=== PATIENT | female | born 1955 | race Caucasian/White ===

== ENCOUNTER 2018-01-19 15:17 | Inpatient (IN) | payer OTHER ==
[~2018-01-19] VITALS: Ht 162.6 cm; Wt 71.7 kg
--- NOTE | ~2018-01-19 | EKG ---
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1955 Requested By: Ignacio Machado Order Number: [id number] MD: Aakash Reagan Measurements Intervals [place] Rate: 104 P: 75 NH: 161 QRS: 36 QRSD: 98 T: 86 QT: 366 QTc: 482 Interpretive Statements Sinus tachycardia Abnormal inferior Q waves Nonspecific T abnormalities, lateral leads No previous ECG available for comparison Electronically Signed On 01-20-2018 8:09:58 SENIOR PHYSICAL THERAPIST by Aakash Reagan [email or web address] <ELECTRONICALLY SIGNED> By: Aakash Reagan MD, [facility] 01/20/18 0809 1539 1539 Aakash Reagan MD, [facility] /EPI
--- NOTE | ~2018-01-19 | HC ---
[facility] [place] [address] [place] [address] CONSULTATION Name: ZEV MARTIN Hamida Room #: 204-P [facility]..#: [id number] Admission: 01/19/18 Attend Phys: Hugo Hilario MD Discharge: 01/21/18 Date of : 53 Report #: [id number] THIS REPORT FOR: //name// CC: FAM unknown Hugo Hilario REASON FOR CONSULTATION: Elevated creatinine. REASON FOR PRESENTATION: Shortness of breath. HISTORY OF PRESENT ILLNESS: I am not really sure how accurate is the details of the history given by the patient. She is a 62-year-old with some psychiatric problems. She is known to have hypertension; however, she has not been seen by a primary care physician. She gets her medications sporadically from different facilities. She is known to have bipolar disorder and hypertension. She had kidney failure in the past. She tells me that back in 2004, she had issues while living in [place] and she was told she has advanced kidney disease and she almost of it, the details of this are not available for me. She also tells me that she had an NC when she used to live in [place]. Apparently, the patient has been living in different states complicating her medical history. She presented complaining of left-sided chest pain. This started while at rest. It was associated with nausea. No relieving or aggravating factors. On presentation to the emergency room, she was found to have an elevated creatinine at 3.0 and I was consulted to manage accordingly. Back in 2014, it does look like that she had an elevated creatinine back then. This had been in the 1.4-2 range. PAST MEDICAL HISTORY: 1. Hypertension. 2. Bipolar disorder. 3. Coronary artery disease with stents. 4. History of kidney disease. 5. Hyperlipidemia. 6. History of methamphetamine usage. PAST SURGICAL HISTORY: Cholecystectomy, partial colectomy, and left ankle surgery. SOCIAL HISTORY: Positive for meth, cocaine. She lives with a friend. She is also smoker. REVIEW OF SYSTEMS: GENERAL: Significant for weakness. CARDIAC: As per the history of present illness. PULMONARY: Significant for cough and shortness of breath. GASTROINTESTINAL: Significant for nausea and vomiting. GENITOURINARY: Significant for frequency and urgency. Again, I am not really [facility] [address] [place] [address] CONSULTATION Name: ZEV MARTIN [place] Room #: 204-P [facility]#: [id number] Admission: 01/19/18 Attend Phys: Hugo Hilario MD Discharge: 01/21/18 Date of : 53 Report #: [id number] sure how accurate is this history. PHYSICAL EXAMINATION: GENERAL: Alert and oriented. VITAL SIGNS: Blood pressure is 167/83, was 185/91. HEAD AND NECK: No jugular venous distention. CHEST: Clear to auscultation. CARDIOVASCULAR: No rub. ABDOMEN: Soft and nontender. LOWER EXTREMITIES: No edema. LABORATORY VALUES: Reviewed. BUN is 26, creatinine is 3.0. Troponins are negative. No urine studies. ASSESSMENT, IMPRESSION, AND PLAN: 1. Chronic kidney disease. 2. Bipolar disorder. 3. Hypertension. 4. Drug abuse. 5. Noncompliance with medical treatment. 6. I will initiate chronic kidney disease workup. 7. Ultrasounds of the kidneys. 8. Urine studies. 9. Blood pressure control. 10. Cardiology following and managing her symptoms. 11. Compliance seems to be a major issue and will complicate her medical care. <ELECTRONICALLY SIGNED> By: Irma Lang MD 01/22/18 1151 1035 1408 Irma Lang MD /nt
--- NOTE | ~2018-01-19 | 2DMMODE ---
[facility] [address] [place] [address] 2 D/M-MODE ECHOCARDIOGRAM Name: ZEV MARTIN Room #: 204-P [facility] IN ..#: [id number] Admission: 01/19/18 Attend Phys: Hugo Hilario MD Discharge: Date of : 53 Date of Service: 01/20/18 0956 Report #: [id number] THIS REPORT FOR: //name// APPROVED REPORT Study performed: 01/20/2018 08:59:56 EXAM: Comprehensive 2D, Doppler, and color-flow Echocardiogram Patient Location: Bedside Room #: 204 Status: routine BSA: 1.68 HR: 68 bpm BP: 167/83 mmHg Rhythm: NSR Other Information Study Quality: Good Indications Chest pain. Hx: CAD, VT, stent, htn, hlp, drug and tob abuse. 2D Dimensions RVDd: 37.32 mm LVEF(%): 52.71 (>50%) IVSd: 10.22 (7-11mm) LVOT Diam: 19.76 (18-24mm) LVDd: 50.89 mm PWd: 9.89 (7-11mm) Ascending Ao: 38.38 (22-36mm) LVDs: 37.04 (25-40mm) Aortic Root: 33.78 mm Thomas's LVEF: 52.71 % Volumes Left Atrial Volume (Systole) Single Plane 4CH: 61.35 mL Single Plane 2CH: 78.83 mL LA ESV Index: 48.00 mL/m2 Aortic Valve AoV Peak Michael.: 1.55 m/s AO Peak Gr.: 9.63 mmHg LVOT Max P.90 mmHg LVOT Max V: 1.31 m/s ANJELICA Vmax: 2.59 cm2 Mitral Valve E/A Ratio: 0.6 MV Decel. Time: 199.60 ms [facility] [employer] [address] 2 D/M-MODE ECHOCARDIOGRAM Name: ZEV MARTIN Room #: 204-P [facility] IN ..#: [id number] Admission: 01/19/18 Attend Phys: Hugo Hilario MD Discharge: Date of : 53 Date of Service: 01/20/18 0956 Report #: [id number] MV E Max Michael.: 0.80 m/s MV A Michael.: 1.37 m/s MV PHT: 57.88 ms IVRT: 103.81 ms Pulmonary Valve PV Peak Michael.: 1.06 m/s PV Peak Gr.: 4.47 mmHg Pulmonary Vein P Vein S: 0.45 m/s P Vein D: 0.92 m/s P Vein S/D Ratio: 0.49 Tricuspid Valve TR Peak Michael.: 2.55 m/s RAP Estimate: 5.00 mmHg TR Peak Gr.: 26.05 mmHg Left Ventricle The left ventricle is normal size. There is normal LV segmental wall motion. There is normal left ventricular wall thickness. Left ventricular systolic function is normal. LVEF is 55%. Mild diastolic dysfunction is present (impaired relaxation pattern). Right Ventricle The right ventricle is normal size. The right ventricular systolic function is normal. Atria Left atrium is moderately dilated. Lipomatous hypertrophy of septum The right atrium size is normal. Aortic Valve The aortic valve is normal in structure, trileaflet. No aortic regurgitation is present. There is no aortic valvular stenosis. Mitral Valve Mild mitral annular calcification. Mild mitral regurgitation. No evidence of mitral valve stenosis. Tricuspid Valve The tricuspid valve is normal in structure. Trace to mild tricuspid regurgitation. Estimated PAP is 30-35mmHg. Pulmonic Valve The pulmonary valve is normal in structure. Trace pulmonic [facility] [address] [place] [address] 2 D/M-MODE ECHOCARDIOGRAM Name: ZEV MARTIN Room #: 204-P [facility] IN [facility]#: [id number] Admission: 01/19/18 Attend Phys: Hugo Hilario MD Discharge: Date of : 53 Date of Service: 01/20/18 0956 Report #: [id number] regurgitation. Great Vessels The aortic root is normal in size. The ascending aorta is mildly dilated. IVC is normal in size and collapses >50% with inspiration. Pericardium There is no pericardial effusion. <Conclusion> Left ventricular systolic function is normal. There is normal LV segmental wall motion. LVEF is 55%. Mild diastolic dysfunction.. Left atrium is moderately dilated. Lipomatous hypertrophy of septum The aortic valve is normal in structure, trileaflet. No aortic regurgitation or stenosis Mild mitral annular calcification. Mild mitral regurgitation. Trace to mild tricuspid regurgitation. Estimated pulmonary artery pressure of 30-35mmHg. There is no pericardial effusion. <ELECTRONICALLY SIGNED> By: Aakash Reagan MD, FACC 01/20/18955 5 5 Aakash Reagan MD, FACC /INF
[~2018-01-19 15:17] MED LIST: ABILIFY10 MG PO; ADDERALL 20 MG20 M1 PO; ADULT LOW DOSE81 MG PO; ATIVAN1 MG PO; COMBIPATCH 0.01 EACH TD; LAMICTAL XR200 MG PO; LOPRESSOR 50 MG50 M1 PO; MS CONTIN 60 MG60 M1 PO; NIFEDIPINE ER90 M1 PO; OPANA ER20 MG PO; OXYCONTIN30 MG PO; PROZAC40 MG PO; TYLENOL325 MG PO; XANAX1 MG PO
[2018-01-19 15:18] VITALS: BP 185/91
[2018-01-19 15:37] LABS: HEMATOCRIT 35.8 % (37.0-47.0); HEMOGLOBIN 11.6 gm/dL (12.0-15.0); MCH 26.9 pg (26.0-34.0); MCHC 32.4 g/dL (28.0-37.0); MCV 83.3 fL (80.0-100.0); RBC 4.3 mil/uL (4.20-5.00); RDW 16.7 % (10.5-14.5); WBC 8.4 thou/uL (4.0-11.0)
[2018-01-19 15:41] LABS: ANION GAP 10 mmol/L (7-16); BUN 28 mg/dL (7-18); CALCIUM 8.9 mg/dL (8.5-10.1); CHLORIDE 109 mmol/L (98-107); CO2 23 mmol/L (21-32); CREATININE 3.2 mg/dL (0.6-1.0); GLUCOSE 116 mg/dL (74-106); POTASSIUM 4.1 mmol/L (3.5-5.1); SODIUM 142 mmol/L (136-145)
[2018-01-19 15:50] LABS: SGOT 40 U/L (15-37); SGPT 47 U/L (30-65); TOTAL BILIRUBIN 0.3 mg/dL (<0.1-1.0); TOTAL PROTEIN 7.1 g/dL (6.4-8.2); TROPONIN-I < 0.04 ng/mL (<0.06)
[2018-01-19 17:20] LABS: PROTIME 9.5 Seconds (9.3-11.4)
[2018-01-19 18:27] VITALS: BP 169/96
[2018-01-19 20:00] VITALS: BP 188/98
[2018-01-20] VITALS: BP 174/89
[2018-01-20 03:19] LABS: HEMATOCRIT 35.1 % (37.0-47.0); HEMOGLOBIN 11.1 gm/dL (12.0-15.0); MCH 26.3 pg (26.0-34.0); MCHC 31.8 g/dL (28.0-37.0); MCV 82.9 fL (80.0-100.0); RBC 4.23 mil/uL (4.20-5.00); RDW 16.6 % (10.5-14.5); WBC 6.9 thou/uL (4.0-11.0)
[2018-01-20 03:35] LABS: ANION GAP 10 mmol/L (7-16); BUN 26 mg/dL (7-18); CALCIUM 8.3 mg/dL (8.5-10.1); CHLORIDE 111 mmol/L (98-107); CO2 23 mmol/L (21-32); GLUCOSE 133 mg/dL (74-106); POTASSIUM 3.5 mmol/L (3.5-5.1); SODIUM 144 mmol/L (136-145); TROPONIN-I < 0.04 ng/mL (<0.06)
[2018-01-20 04:00] VITALS: BP 158/86
[2018-01-20 07:43] VITALS: BP 167/83
[2018-01-20 08:59] LABS: CHOLESTEROL 136 mg/dL (<200); HDL CHOLESTEROL 82 mg/dL (>40); LDL CHOLESTEROL 48 mg/dL (<100); TC:HDL 1.7 Ratio (Not establshd); TRIGLYCERIDE 32 mg/dL (<150); VLDL 6 mg/dL (<40)
[2018-01-20 12:51] VITALS: BP 140/76
[2018-01-20 16:55] VITALS: BP 175/85
[2018-01-20 19:28] VITALS: BP 163/80
[2018-01-20 22:35] LABS: URINE BILIRUBIN NEGATIVE (Negative); URINE BLOOD NEGATIVE (Negative); URINE CLARITY CLOUDY; URINE COLOR YELLOW; URINE GLUCOSE-RANDOM* NEGATIVE (Negative); URINE KETONES NEGATIVE (Negative); URINE LEUKOCYTES 1+ (Negative); URINE NITRITE NEGATIVE (Negative); URINE PROTEIN (DIPSTICK) NEGATIVE (Negative); URINE SPECIFIC GRAVITY 1.015 (1.005-1.035); URINE UROBILINOGEN 0.2 E.U./dl (0.2-1.0)
[2018-01-20 22:51] LABS: BACTERIA >30 Many /HPF (None Seen); SQUAMOUS >10 Many /LPF (0-3); URINE WBC >25 Many /HPF (0-5)
[2018-01-20 22:52] LABS: CASTS None Seen /LPF (None Seen); CRYSTALS None Seen /LPF (None Seen); URINE RBC 0-2 Rare /HPF (0-2)
[2018-01-21 04:21] LABS: PHOSPHORUS 3.1 mg/dL (2.5-4.9); POTASSIUM 3.8 mmol/L (3.5-5.1)
[2018-01-21 04:46] VITALS: BP 178/92
[2018-01-21 07:35] VITALS: BP 183/101
[2018-01-21] MEDS ORDERED: BYSTOLIC10 MG PO (12:48)
[2018-01-21] MEDS ORDERED: PROZAC40 MG PO (12:48)
[2018-01-21] MEDS ORDERED: NIFEDIPINE ER90 M1 PO (12:48)
[2018-01-21] MEDS ORDERED: LAMICTAL XR200 MG PO (12:48)
[2018-01-21] MEDS ORDERED: LIPITOR 20 MG T20 M1 PO (12:48)
[2018-01-21] MEDS ORDERED: ABILIFY10 MG PO (12:49)
[2018-01-21 14:57] VITALS: BP 183/101
[2018-01-21 15:12] VITALS: BP 178/79
[2018-01-21 17:15] VITALS: BP 183/101
== END 2018-01-21 15:30 | disposition home or self-care (01) | DRG 683 ==
LOC: ER 15:17 → 2N 16:35 → EROBS 16:35 → 2N 16:35 → EROBS 18:35 → 2N 18:47 → ENTRNSPT 01-21 16:27
PROVIDERS: Emergency Medicine; Hospitalist; Nurse Practitioner; Nurse Practitioner Adult Health
DX: N17.0 Acute kidney failure with tubular necrosis (principal); E44.0 Moderate protein-calorie malnutrition; F31.9 Bipolar disorder, unspecified; R00.0 Tachycardia, unspecified; R09.02 Hypoxemia; I25.10 Atherosclerotic heart disease of native coronary artery without angina pectoris; E78.5 Hyperlipidemia, unspecified; F14.90 Cocaine use, unspecified, uncomplicated; F17.210 Nicotine dependence, cigarettes, uncomplicated; I12.9 Hypertensive chronic kidney disease with stage 1 through stage 4 chronic kidney disease, or unspecified chronic kidney disease; E78.00 Pure hypercholesterolemia, unspecified; I16.0 Hypertensive urgency; G89.29 Other chronic pain; M54.2 Cervicalgia; M54.9 Dorsalgia, unspecified; N18.4 Chronic kidney disease, stage 4 (severe); Z87.442 Personal history of urinary calculi; Z95.5 Presence of coronary angioplasty implant and graft; Z90.49 Acquired absence of other specified parts of digestive tract; Z91.14 Patient's other noncompliance with medication regimen; Z79.899 Other long term (current) drug therapy
CPT/HCPCS: 10081

== ENCOUNTER 2021-08-30 15:51 | Inpatient (IN) | payer OTHER ==
[2021-08-30] VITALS (7 sets, daily range): BP systolic 92–138; BP diastolic 30–86
[~2021-08-30] VITALS: Ht 160 cm; Wt 46.4 kg
--- NOTE | ~2021-08-30 | HC ---
[facility] [place] [address] [place] [address] CONSULTATION Name: ZEV MARTIN Room #: 207-P ADM IN M.R.#: [id number] Admission: 08/30/21 Attend Phys: Madhuri Rodríguez MD Discharge: Date of : 53 Report #: [id number] THIS REPORT FOR: cc: [facility] - Clinic physician unknown [facility] - Clinic physician unknown Aakash Reagan MD [facility] ~ DATE OF SERVICE: 08/31/2021 REASON FOR CONSULTATION: Heart block. HISTORY OF PRESENT ILLNESS: The patient is a 66-year-old woman who is on dialysis for end-stage renal disease. She has a history of paroxysmal atrial fibrillation with recent Watchman placement at [facility] a couple weeks ago. She presented with syncope and altered mental status. When paramedics arrived to [place], she was in complete heart block and transcutaneous pacing was implemented. On arrival to [facility], she was found to be severely hyperkalemic. Aggressive measures to correct this were undertaken including emergent dialysis. Her heart block resolved. She has had intermittent atrial fibrillation. No chest heaviness or pressure. No orthopnea or paroxysmal nocturnal dyspnea. MEDICATIONS: Her medicines include Plavix, atorvastatin 20 mg daily, Prozac 40 mg daily, Bystolic 10 mg daily, nifedipine ER 90 mg daily, Abilify 15 mg daily. PAST HISTORY AND MEDICAL RECORDS: Have been reviewed and include a history of coronary disease in [place], [place] in 2007, renal failure, history of cocaine use remotely, hypertension. SOCIAL HISTORY: She is a smoker. FAMILY HISTORY: Unremarkable for premature coronary disease. REVIEW OF SYSTEMS: All systems negative except as that noted above. PHYSICAL EXAMINATION: GENERAL: Reveals a pleasant woman, in no distress. She complains of left arm pain radiating down to her fingertips. VITAL SIGNS: Blood pressure is 90/30, heart rate is 70 and regular, respirations unlabored at 18. HEENT: There are neither xanthelasma, subcutaneous xanthomata, oral mucosal or digital cyanosis or kyphoscoliosis present. CHEST: Clear to auscultation and percussion. CARDIOVASCULAR: Regular rate and rhythm with normal S1, S2. No murmurs or rubs. ABDOMEN: Soft and nontender. EXTREMITIES: Without cyanosis, clubbing or edema. Radial pulses are 2+. [facility] [address] [place] [address] CONSULTATION Name: ZEV MARTIN Room #: [address] [place] [address] IN M.R.#: [id number] Admission: 08/30/21 Attend Phys: Madhuri Rodríguez MD Discharge: Date of : 53 Report #: [id number] NEUROLOGIC: She is alert with a nonfocal exam. LABORATORY DATA: Prior EKG, normal left ventricular systolic function with left atrial enlargement, mild mitral regurgitation. Potassium 6.8, creatinine 11.3. White count 9.6, hemoglobin 7.6, hematocrit 22, platelet count 247. IMPRESSION: 1. Complete heart block, resolved, related to hyperkalemia. 2. End-stage renal disease, on dialysis, incomplete compliance. 3. Recent Watchman placement. 4. Hypertension. 5. Dyslipidemia. 6. Prior polysubstance abuse. RECOMMENDATIONS: 1. Dual antiplatelet therapy following recent Watchman placement. 2. No indication for temporary or permanent pacing given readily reversible and identified etiology for heart block, namely hyperkalemia. I have discussed these issues with the patient in detail. Thank you for asking me to participate in her care. By: 0636 [id number] Aakash Reagan MD, FACC /nt
--- NOTE | ~2021-08-30 | EMS ---
[address] [address] EMS Patient Care Report Name: ZEV MARTIN Room #: 207-P [facility] IN M.R.#: [id number] Admission: 08/30/21 Attend Phys: Madhuri Rodríguez MD Discharge: 09/01/21 Date of : 53 Report #: [id number] THIS REPORT FOR: //name// Report Transmitted: 09/05/2021 13:35 EMS Care Summary [place], [place]/[facility] Incident [id number] @ 08/30/2021 15:12 Incident Location [address] [place] [address] Patient ZEV MARTIN Female, 66 Years 1955 Patient Address HOMELESS Patient History IV Drug Use/Abuse,Dialysis, Patient Allergies No known allergies, Patient Medications Diltiazem, Chief Complaint WEAKNESS Disposition Transported Lights/Ashley Dispatch Reason Sick Person Transported To [facility] Narrative ARRIVED TO FIND PT SITTING ON A COUCH WITH STAFF. PT REPORTS FEELING WEAK AND DIZZY FOR THE PAST 3 HOURS. PT MOVED TO COT, SECURED WITH STRAPS X2, LOADED WITHOUT INCIDENT. ALS ASSESSMENT VITALS OBTAINED. PT FOUND TO BE BRADYCARDIC. PT PACED. [address] [address] EMS Patient Care Report Name: ZEV MARTIN Room #: 207-P [facility] IN [facility].#: [id number] Admission: 08/30/21 Attend Phys: Madhuri Rodríguez MD Discharge: 09/01/21 Date of : 53 Report #: [id number] [place], PT REPORTS DISCOMFORT WITH PACING, VERSED ADMINISTERED FOR COMFORT. ARRIVED. PT TAKEN INSIDE ON COT TO ER 9. PT MOVED TO BED RAILS RAISED X2. PT LEFT ON EMS PACER UNTIL MOVED TO ER PACER. REPORT GIVEN TO NURSE, PT CARE TRANSFERRED. Initial Vitals @15:37P: 70, @15:33P: 41, @15:34P: 56,R: 20,BP: 73/34,Pain: 4/10,GCS: 15,SpO2: 95,Revised Trauma: 10, @15:31P: 56,R: 20,BP: 86/56,Pain: 0/10,GCS: 15,SpO2: 95,Revised Trauma: 11, @15:37P: 71,R: 20,Pain: 4/10,GCS: 15,SpO2: 95, Assessments @15:24MENTAL:Time Oriented,Event Oriented,Place Oriented,Person Oriented,SKIN:Cold,Pale,Diaphoresis,HEENT:Head/Face: No Abnormalities,Eyes: No Abnormalities,Neck/Airway: No Abnormalities,LUNG SOUNDS:General: No Abnormalities,Left Upper: No Abnormalities,Right Upper: No Abnormalities,Left Lower: No Abnormalities,Right Lower: No Abnormalities,ABDOMEN:General: No Abnormalities,Left Upper: No Abnormalities,Right Upper: No Abnormalities,Left Lower: No Abnormalities,Right Lower: No Abnormalities,PELVIS//GI:No Abnormalities,EXTREMITIES:Left Arm: No Abnormalities,Right Arm: No Abnormalities,Left Leg: No Abnormalities,Right Leg: No Abnormalities,PULSE:Radial: 2+ Normal,NEURO:No Abnormalities, Impression Generalized Weakness Procedures @15:37Midazolam - 2 Milligrams (mg) - Intramuscular (IM)Response: Unchanged@15:33Response: Unchanged@15:35 cc () @15:24ALS AssessmentResponse: UnchangedSucceeded Timeline 15:11,Call Received 15:11,Dispatch Notified 15:12,Dispatched 15:14,En Route 15:22,On Scene 15:24,At Patient 15:24,ALS Assessment,Response: UnchangedSucceeded, 15:31,BP: 86/56 M,PULSE: 56,RR: 20 R,SPO2: 95 Ox,ETCO2: ,BG: ,PAIN: 0,GCS: 15, 15:33,Response: Unchanged 15:33,BP: / M,PULSE: 41,RR: R,SPO2: Ox,ETCO2: ,BG: ,PAIN: ,GCS: , 15:34,Depart Scene 15:34,BP: 73/34 M,PULSE: 56,RR: 20 R,SPO2: 95 Ox,ETCO2: ,BG: ,PAIN: 4,GCS: 15, [facility] [address] [place] [address] EMS Patient Care Report Name: VERONICAZEV Room #: 207-P [facility] IN .R.#: [id number] Admission: 08/30/21 Attend Phys: Madhuri Rodríguez MD Discharge: 09/01/21 Date of : 53 Report #: [id number] 15:35, cc Site: , 15:37,Midazolam - 2 Milligrams (mg) - Intramuscular (IM),Response: Unchanged 15:37,BP: / M,PULSE: 70,RR: R,SPO2: Ox,ETCO2: ,BG: ,PAIN: ,GCS: , 15:37,BP: / M,PULSE: 71,RR: 20 R,SPO2: 95 Ox,ETCO2: ,BG: ,PAIN: 4,GCS: 15, 15:39,At Destination 16:02,Call Closed Disclaimer v1.1 Copyright 2020 [employer] This EMS Care Summary contains data elements from the applicable legal record (which may be displayed differently). It is designed to provide pertinent information for the following purposes: continuity of care, clinical quality, and state data reporting. The complete legal record is available to ED staff and administrators of the receiving hospital in [employer] Patient Tracker. All data is provided "as is."
[~2021-08-30 15:51] MED LIST changes: +BYSTOLIC10 MG PO; +LIPITOR 20 MG T20 M1 PO
[2021-08-30 16:36] LABS: ABSOLUTE NEUTROPHILS 9.7 thou/uL (1.4-8.2); BASOPHILS 0.7 % (0.0-2.0); EOSINOPHILS 2.3 % (0.0-3.0); HEMATOCRIT 23.8 % (37.0-47.0); HEMOGLOBIN 7.6 gm/dL (12.0-15.0); MCH 30.5 pg (26.0-34.0); MCHC 31.8 g/dL (28.0-37.0); MCV 95.7 fL (80.0-100.0); MONOCYTES 4.9 % (1.0-8.0); PLATELET COUNT 319 thou/uL (150-400); POLYS 74.1 % (36.0-66.0); RBC 2.49 mil/uL (4.20-5.00); RDW 16.9 % (10.5-14.5); WBC 13.2 thou/uL (4.0-11.0)
[2021-08-30 16:53] LABS: ALBUMIN 2.8 g/dL (3.4-5.0); CALCIUM 8.3 mg/dL (8.5-10.1); CREATININE 11.3 mg/dL (0.6-1.0); DIRECT BILIRUBIN 0.1 mg/dL (<0.1-0.2); TOTAL BILIRUBIN 0.4 mg/dL (0.2-1.0); TOTAL PROTEIN 6.5 g/dL (6.4-8.2)
[2021-08-30 16:55] LABS: POTASSIUM 6.8 mmol/L (3.5-5.1)
--- NOTE | 2021-08-30 19:00 | NUR ---
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 PT HAS BEEN ON HD FOR APPROX ONE YEAR. AWAKE ALERT AND COOPERATIVE WANTING PAIN MED FOR CHRONIC NECK AND BACK PAIN WILL CONT TO MONITOR
--- NOTE | 2021-08-30 23:15 | NUR ---
DIALYSIS COMPLETED 1 LITER TAKEN OFF. EXTERNAL PACER OFF PT IS NOW IN SINUS RHYTHM
[2021-08-31] VITALS (16 sets, daily range): BP systolic 96–145; BP diastolic 44–77
[2021-08-31 03:27] LABS: CALCIUM 8.9 mg/dL (8.5-10.1)
[2021-08-31 03:28] LABS: HEMATOCRIT 22.8 % (37.0-47.0); HEMOGLOBIN 7.6 gm/dL (12.0-15.0); MCH 30.7 pg (26.0-34.0); MCHC 33.4 g/dL (28.0-37.0); RBC 2.48 mil/uL (4.20-5.00); RDW 16.1 % (10.5-14.5); WBC 9.6 thou/uL (4.0-11.0)
[2021-08-31 03:36] LABS: CREATININE 3.9 mg/dL (0.6-1.0); POTASSIUM 3.4 mmol/L (3.5-5.1)
--- NOTE | 2021-08-31 06:00 | NUR ---
PT AWAKE AMD ALERT PROGRESSING TOWARD GOALS 10 CC UO THIS SHIFT. PT WANTS TO GO HOME AND SHE DOES NOT WANT TO BE TIED DOWN TO DIALYSIS EVERYDAY. SHE STATES SHE IS VERY NONCOMPLIANT, REMAINS IN SINUS RHYTHM. BATHED. ONE MOPD STOOL THIS AM. WILL CONT TO MONITOR
--- NOTE | 2021-08-31 13:40 | EKG ---
[address] [place] [address] ELECTROCARDIOGRAM REPORT Name: ZEV MARTIN Room #: 242-P ADM IN M.R.#: [id number] Admission: 08/30/21 Attend Phys: Madhuri Rodríguez MD Discharge: Date of : 53 Report #: [id number] [facility] ED Test Date: 2021-08-30 Test Time: 16:26:34 Pat Name: ZEV MARTIN Department: Room: 242 Gender: F Nurse'S Assistant: SCOTTIE : 1955 Requested By: Tesha David Order Number: [id number] MD: Aakash Reagan Measurements Intervals [place] Rate: 25 P: 0 CO: 129 QRS: 40 QRSD: 117 T: 64 QT: 577 QTc: 372 Interpretive Statements Complete heart block with severe bradycardia Baseline wander in lead(s) II,III,aVR,aVL,aVF,V1,V2,V3,V4,V5,V6 Compared to ECG 01/19/2018 15:39:43 Complete heart block is now present Electronically Signed On 08-31-2021 13:40:39 CDT by Aakash Reagan [email or web address] <ELECTRONICALLY SIGNED> By: Aakash Reagan MD, [facility] 08/31/21 1340 1626 1626 Aakash Reagan MD, [facility] /EPI
--- NOTE | 2021-08-31 13:44 | EKG ---
[place] [address] [facility] [employer] ([employer] [place] [address] ELECTROCARDIOGRAM REPORT Name: ZEV MARTIN Room #: 242- ADM IN M.R.#: [id number] Admission: 08/30/21 Attend Phys: Madhuri Rodríguez MD Discharge: Date of : 53 Report #: [id number] [facility] Test Date: 2021-08-31 Test Time: 08:40:57 Pat Name: ZEV MARTIN Department: Room: 242 Gender: F Director Of Capital Giving: AUGUSTUS : 1955 Requested By: Aakash Reagan Order Number: [id number] MD: Aakash Reagan Measurements Intervals [place] Rate: 84 P: 73 MD: 194 QRS: 41 QRSD: 99 T: 137 QT: 414 QTc: 490 Interpretive Statements Sinus rhythm LVH with secondary repolarization abnormality Borderline prolonged QT interval Compared to ECG 01/19/2018 15:39:43 Complete heart block is no longer present Electronically Signed On 08-31-2021 13:43:43 CDT by Aakash Reagan [email or web address] <ELECTRONICALLY SIGNED> By: Aakash Regaan MD, [facility] 08/31/21 1343 9 9 Aakash Reaagn MD, [facility] /EPI
--- NOTE | 2021-08-31 16:54 | NUR ---
pt denies any cardiac signs/symptoms. wants to return to [facility] and have dialysis tomorrow. rn attempted to facilitate Damian transfer unsuccessfully. report given to DIANN Sanchez. pt transferred to #207 per wheelchair.
--- NOTE | 2021-08-31 18:32 | NUR ---
PT ARRIVED TO UNIT AT 1650. PT IS MS-TELE STATUS.PT IS STABLE AT TIME OF ADMISSION. PTS VS OBTAINED, PT IS ORIENTED TO ROOM AND PROCEEDURES. PT IS OFFERED FOOD AND DRINK AND ACCEPTS. PT ATE DINNER AND IS RESTING IN BED AT THIS TIME. WILL CONTNIUE TO MONITOR.
[2021-09-01 04:46] VITALS: BP 132/63
[2021-09-01 08:02] VITALS: BP 189/97
[2021-09-01 12:12] VITALS: BP 141/84
[2021-09-01] MEDS ORDERED: HYDRALAZINE 2525 MG PO (12:17)
[2021-09-01] MEDS ORDERED: CLOPIDOGREL75 MG PO (12:17)
[2021-09-01] MEDS ORDERED: BAYER CHEWABLE81 MG PO (12:17)
--- NOTE | 2021-09-01 12:21 | NUR ---
0700 ASSUMED CARE OF PT THIS AM. PT IS AWAKE AND RESTING IN BED AT TIME OF SHIFT CHANGE. PT IS STILL IN BED AT TIME OF ASSESSMENT AND MEDICAITON ADMINISTRATION. PT IS CALM AND COMPLIANT WITH MEDICATIONS AND ASSESSMENT. PT VOICES THAT SHE IS READY TO GO HOME TO THIS NURSE. THE PT IS GETTING DYALISIS THIS AM AND THEN WILL DC HOME TO [facility] [facility] LATER THIS AFTERNOON. WILL CONTINUE TO MONITOR.
[2021-09-01 16:50] VITALS: BP 141/84
--- NOTE | 2021-09-01 17:00 | NUR ---
ALEX IS DISCHARGED HOME TO [facility]. PT IS STABLE AT TIME OF DISCHARGE. PTS IJ IS REMOVED @1500 PRIOR TO DISCHARGE. PT IS GIVEN ALL DISCHARGE AND FOLLOW UP INSTRUCITONS. PTS TELE MONITOR IS REMOVED PRIOR TO DISCHARGE. PT IS ESCORTED OFF OF UNIT ACCOMPANIED BY TRANSPORTATION STAFF.
--- NOTE | 2021-09-01 17:02 | NUR ---
1300 PT HAD 1.5 HRS OF DYALISIS AND THEN TOLD DYALISIS NURSE TO STOP DYALISIS BECUASE SHE WAS TIRED OF IT AND NO LONGER WANTED TO DO IT. PT WAS EDUCATED ON IMPORTANCE OF DYALISIS AND PT STILL WANTED TO STOP DYALISIS. DYALISIS NURSE REORTED THAT THEY TOOK OFF APROX 300CC OF FLUID. PHYSICIAN NOTIFIED.
--- NOTE | 2021-09-01 17:04 | NUR ---
1500 PS IS REFUSING LAB DRAW. PTS IJ HAS ALREADY BEEN REMOVED TO PREPHERIAL STICK WAS NECESSARY. PT REFUSED. PHYSICIAN NOTIFIED.
--- NOTE | 2021-09-01 17:26 | NUR ---
Spoke with patient and discussed dc orders rec today. Patient dc to [place] today. Faxed clincal and orders to [place]. Sp with Priyanka at [place] who arranged van transport for 1600. Chart copied. Orders faxed. Face sheet has no family listed. Patient reports she has a sister but does not want her contacted. Patient cont to cancel dialysis herself. She was rec dialysis today and reports she wanted it stopped she did not want to cont. Priyanka at [facility] reports it is a struggle as they will arrange transport to/from dialysis and patient will cancel at last minute. Encouraged patient to cont. Rn called report.
== END 2021-09-01 18:03 | DRG 640 ==
LOC: ER 15:51 → EROBS 17:57 → 2N 17:57 → ICU 18:53 → 2N 08-31 16:57
PROVIDERS: Emergency Medicine; Hospitalist; ADMIT Internal Medicine; ATTEND Internal Medicine
PROC: B548ZZA Ultrasonography of Superior Vena Cava, Guidance (ICD-10-PCS; principal; 2021-08-30)
PROC: 5A1D70Z Performance of Urinary Filtration, Intermittent, Less than 6 Hours Per Day (ICD-10-PCS; principal; 2021-08-30)
PROC: 02HV33Z Insertion of Infusion Device into Superior Vena Cava, Percutaneous Approach (ICD-10-PCS; principal; 2021-08-30)
PROC: 5A1223Z Performance of Cardiac Pacing, Continuous (ICD-10-PCS; principal; 2021-08-30)
PROC: 3E02340 Introduction of Influenza Vaccine into Muscle, Percutaneous Approach (ICD-10-PCS; 2021-09-01)
PROC: 5A1D70Z Performance of Urinary Filtration, Intermittent, Less than 6 Hours Per Day (ICD-10-PCS; 2021-09-01)
DX: E87.5 Hyperkalemia (principal); N18.6 End stage renal disease; G93.40 Encephalopathy, unspecified; I44.2 Atrioventricular block, complete; I12.0 Hypertensive chronic kidney disease with stage 5 chronic kidney disease or end stage renal disease; I25.10 Atherosclerotic heart disease of native coronary artery without angina pectoris; E78.5 Hyperlipidemia, unspecified; F31.9 Bipolar disorder, unspecified; I95.9 Hypotension, unspecified; I48.0 Paroxysmal atrial fibrillation; M79.602 Pain in left arm; G89.29 Other chronic pain; R53.81 Other malaise; D63.8 Anemia in other chronic diseases classified elsewhere; Z87.442 Personal history of urinary calculi; I25.2 Old myocardial infarction; Z95.5 Presence of coronary angioplasty implant and graft; Z90.49 Acquired absence of other specified parts of digestive tract; Z82.49 Family history of ischemic heart disease and other diseases of the circulatory system; Z79.82 Long term (current) use of aspirin; Z79.899 Other long term (current) drug therapy; Z91.15 Patient's noncompliance with renal dialysis; Z23 Encounter for immunization
CPT/HCPCS: 10078; 10081; 10797; 32100